=== PATIENT | male | born 1945 | race Caucasian/White ===

== ENCOUNTER → 2023-04-06 14:02 | Outpatient (BNVA) | payer MEDICARE, SELFPAY | PROVIDERS: PCP Registered Nurse; Visit Provider Registered Nurse | DX: F32.A Depression, unspecified (principal); R63.4 Abnormal weight loss; E53.8 Deficiency of other specified B group vitamins; E55.9 Vitamin D deficiency, unspecified; F17.210 Nicotine dependence, cigarettes, uncomplicated | CPT/HCPCS: 80053; 82306; 82607; 84443; 85025 ==

== ENCOUNTER 2023-11-16 10:21 | Emergency (ER) | payer MEDICARE, SELFPAY ==
[2023-11-16 10:43] VITALS: BP 155/77; PULSE 113; RESP 16; TEMP 36.9; O2SAT 96; BMI 25.7
--- NOTE | 2023-11-16 11:22 | XRR_ITS ---
PROCEDURE INFORMATION: Exam: XR Left Foot Exam date and time: 11/16/2023 11:39 AM Age: 78 years old Clinical indication: Patient HX: PT presents with left foot pain. Patient states left foot is red and swollen. Patient states it is MRSA. patient is a smoker. Patient ambulated to triage. Patent airway, unlabored respirations, and appropriate color. ; Additional info: Heel abscess, concerun for osteo TECHNIQUE: Imaging protocol: Radiologic exam of the left foot. Views: 3 or more views. COMPARISON: No relevant prior studies available. FINDINGS: Bones/joints: Negative for acute bony abnormality. There is narrowing of the interphalangeal articulations of multiple digits consistent with osteoarthritis. Apparent postoperative defect is seen in the distal 5th metatarsal. Soft tissues: Soft tissue density is seen in the plantar aspect of the heel measuring 8.8 mm. This finding may represent a soft tissue foreign body. XR/XR foot LT min 3V* [id number] IMPRESSION: 1. No acute findings. 2. Osteoarthritis 3. Possible soft tissue foreign body plantar aspect of the heel
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
[2023-11-16 11:41] LABS: Basophils # 0.1 10^3/uL (0.0-0.1); Basophils % 0.5 %; Eosinophils # 0.1 10^3/uL (0.0-0.8); Eosinophils % 1.2 %; Hematocrit 37.9 % (37-53); Lymphocytes # 1.9 10^3/uL (0.8-4.8); Lymphocytes % 15.9 %; Mean Corpuscular HGB Conc 34.3 g/dL (30-55); Mean Corpuscular Hemoglobin 32.3 pg (27-33); Mean Corpuscular Volume 94.3 fl (82-101); Mean Platelet Volume 10.2 fL (7.4-10.4); Monocytes # 0.8 10^3/uL (0.2-0.9); Monocytes % 7.1 %; Neutrophils # 8.72 10^3/uL (1.8-7.7); Nucleated Red Blood Cells % 0 %; Platelet Count 202 10^3/cmm (157-399); Red Blood Count 4.02 10^6/uL (3.85-5.65); Red Cell Distribution Width 13.2 % (12.1-15.1); White Blood Count 11.62 10^3/uL (3.29-11.43)
[2023-11-16 11:55] LABS: Alanine Aminotransferase 8 U/L (0-41); Albumin Level 3.7 g/dL (3.5-5.2); Alkaline Phosphatase 82 U/L (40-130); Blood Urea Nitrogen 8 mg/dL (8-23); C Reactive Protein 48.8 mg/L (0.0-4.9); Calcium 8.7 mg/dL (8.5-10.5); Carbon Dioxide 27 mmol/L (22-29); Chloride 95 mmol/L (98-107); Creatinine Clr Calc Pharmacy 83.3942; Globulin 2.7 g/dL (1.3-4.6); Glucose 139 mg/dL (65-115); Osmolality Calculated 275 mOsm/kg (285-295); Sodium 132 mmol/L (136-145); Total Bilirubin 0.5 mg/dL (0.15-1.2); Total Protein 6.4 g/dL (6.6-8.7)
[2023-11-16 11:58] LABS: Erythrocyte Sedimentation Rate 9 mm/hr (0-10)
[2023-11-16] MEDS: cefepime 2,000 MG in sodium chloride 0.9% (plus) 50 ML 100 MG IV (11:58)
[2023-11-16 11:59] LABS: Anion Gap 14.4 (5-19); Aspartate Amino Transferase 16 U/L (0-40); Potassium 4.4 mmol/L (3.5-5.1)
--- NOTE | 2023-11-16 12:17 | CT_ITS ---
WS: [id number] CT LEFT FOOT, WITH CONTRAST. HISTORY: Rule out osteomyelitis of the heel. Per podiatry Technique: All CT scans at [facility] use at least one of these dose optimization techniques: automated exposure control; mA and/or kV adjustment per patient size (includes targeted exams where dose is matched to clinical indication); or iterative reconstruction. DLP: 214.00 mGy.cm COMPARISON: Radiograph 11/16/2023 Contrast: 350 Omnipaque 100 mL IV. There is a soft tissue ulceration with central fluid and peripheral enhancement involving the plantar surface of the posterior foot. This ulceration and abscess measures 1.5 x 1.8 cm. There is a large a mount of soft tissue edema in the soft tissues along the plantar surface of the calcaneus extending t o the calcaneus. No erosions within the calcaneus or lucency. There is no definite osteomyelitis note d by CT. Mild edema throughout the soft tissues of the foot but predominantly at the hindfoot. Prior infection or amputation of the fifth metatarsal head. Bones are osteopenic. CT/CT foot LT w con [id number] IMPRESSION: 1. Soft tissue abscess along the plantar surface of the hindfoot measures 1.5 x 1.8 cm. There is a large amount of soft tissue edema surrounding the hindfoot . 2. The calcaneus remains intact. No osteomyelitis by CT.
[2023-11-16] MEDS: linezolid premix 600 MG/300 ML PREMIX 300 MG IV (12:31)
[2023-11-16 12:52] VITALS: RESP 18; O2SAT 98
[2023-11-16] MEDS: iohexol 350 mg/mL 500 mL Btl (per mL) IV (12:53)
== END 2023-11-16 13:51 | disposition home or self-care (01) ==
PROVIDERS: Emergency Provider Emergency Medicine
DX: L02.612 Cutaneous abscess of left foot (principal); F17.200 Nicotine dependence, unspecified, uncomplicated
CPT/HCPCS: 29445; 73630; 73701; 80053; 85025; 85651; 86140; 87070; 87075; 87077; 87186; 87205; 96365; 96367; 99285; J0692; J2020; Q9967

== ENCOUNTER → 2023-11-19 12:37 | Outpatient (BNVA) | payer MEDICARE, SELFPAY | PROVIDERS: Visit Provider Podiatrist Foot & Ankle Surgery | DX: L97.423 Non-pressure chronic ulcer of left heel and midfoot with necrosis of muscle (principal); Z51.89 Encounter for other specified aftercare; F17.210 Nicotine dependence, cigarettes, uncomplicated; L97.422 Non-pressure chronic ulcer of left heel and midfoot with fat layer exposed | CPT/HCPCS: 29445 ==

== ENCOUNTER → 2023-11-26 13:11 | Outpatient (BNVA) | payer MEDICARE, SELFPAY | PROVIDERS: Visit Provider Thoracic Surgery (Cardiothoracic Vascular Surgery) | DX: I96 Gangrene, not elsewhere classified (principal); L97.421 Non-pressure chronic ulcer of left heel and midfoot limited to breakdown of skin | CPT/HCPCS: 99213 ==

== ENCOUNTER → 2023-12-02 15:44 | Outpatient (BNVA) | payer MEDICARE, SELFPAY | PROVIDERS: Visit Provider Thoracic Surgery (Cardiothoracic Vascular Surgery) | DX: Z09 Encounter for follow-up examination after completed treatment for conditions other than malignant neoplasm (principal); Z87.2 Personal history of diseases of the skin and subcutaneous tissue | CPT/HCPCS: 99212 ==

== ENCOUNTER → 2023-12-09 11:29 | Outpatient (BNVA) | payer MEDICARE, SELFPAY | PROVIDERS: Visit Provider Nurse Practitioner Family | DX: I10 Essential (primary) hypertension (principal); Z76.89 Persons encountering health services in other specified circumstances | CPT/HCPCS: 80053; 80061; 85025 ==

== ENCOUNTER → 2024-03-29 14:20 | Outpatient (BNVA) | payer MEDICARE, SELFPAY | PROVIDERS: PCP Nurse Practitioner Family; Visit Provider Family Medicine | DX: R32 Unspecified urinary incontinence (principal) | CPT/HCPCS: 81000 ==

== ENCOUNTER → 2024-04-17 09:52 | Outpatient (BNVA) | payer MEDICARE, SELFPAY | PROVIDERS: PCP Nurse Practitioner Family; Referring Provider Family Medicine; Visit Provider Psychiatry & Neurology Neurology | DX: R41.3 Other amnesia (principal); R29.818 Other symptoms and signs involving the nervous system; I10 Essential (primary) hypertension; R41.89 Other symptoms and signs involving cognitive functions and awareness; R40.4 Transient alteration of awareness | CPT/HCPCS: 82306; 82607; 82746; 83090; 83921; 84439; 84443; 84481; 99203; 99204 ==

== ENCOUNTER 2024-04-19 13:14 | Outpatient (CLI) | payer MEDICARE, SELFPAY | END 2024-04-19 13:15 | disposition home or self-care (01) | LOC: LAB 13:15 | PROVIDERS: PCP Nurse Practitioner Family; Visit Provider Psychiatry & Neurology Neurology | DX: R41.89 Other symptoms and signs involving cognitive functions and awareness (principal) | CPT/HCPCS: 36415; 82542 ==

== ENCOUNTER 2024-05-05 11:45 | Outpatient (CLI) | payer MEDICARE, SELFPAY ==
--- NOTE | 2024-05-05 11:45 | MR_ITS ---
WS: [id number] MRI BRAIN WITH AND WITHOUT CONTRAST HISTORY: R41.3 - Other amnesia COMPARISON: None available. TECHNIQUE: Multiplanar imaging performed through the brain with MultiHance 15 ml's IV. No acute infarcts are seen. Graham-white matter differentiation is well preserved. Moderate atrophy. Sc attered T2 and FLAIR signal hyperintensities consistent with moderate small vessel disease. Slightly greater distribution of T2 and FLAIR signal hyperintensities on the RIGHT. No large territory infarct . No susceptibility artifacts or prior lacunar infarcts. Mild ventriculomegaly on the basis of atrophy. Clivus and pituitary gland are normal. Visualized posterior fossa and brainstem are also normal. Postcontrast images are negative for masses or vascular malformations. Dural venous sinuses are normal. Paranasal sinuses: Dense opacification LEFT frontal sinus. Extensive bilateral ethmoid air cell disea se. No air-fluid levels in the maxillary sinuses. Small mucous retention cyst on the RIGHT. Mastoid air cells: Normal. Calvarium and scalp: Normal. MR/MR head wo/w con [id number] IMPRESSION: 1. No acute infarct. No hemorrhage. 2. Moderate atrophy and moderate small vessel ischemic disease. No large sharla tory infarct. 3. LEFT frontal sinusitis. Bilateral ethmoid sinus disease. 4. No mass or abnormal enhancement.
[2024-05-05] MEDS: gadobenate dimeglumine 20 mL vial 15 ML IV (12:20)
== END 2024-05-05 11:46 | disposition home or self-care (01) ==
PROVIDERS: PCP Nurse Practitioner Family; Visit Provider Psychiatry & Neurology Neurology
DX: I67.82 Cerebral ischemia (principal); G31.9 Degenerative disease of nervous system, unspecified; J01.10 Acute frontal sinusitis, unspecified; J32.2 Chronic ethmoidal sinusitis; R41.3 Other amnesia
CPT/HCPCS: 70553

== ENCOUNTER 2024-06-06 14:27 | Oncology outpatient (recurring) (ONCR) | payer MEDICARE, SELFPAY | END 2024-06-27 23:59 | disposition home or self-care (01) | PROVIDERS: PCP Nurse Practitioner Family; Visit Provider Internal Medicine Medical Oncology | DX: Z53.9 Procedure and treatment not carried out, unspecified reason (principal); F17.210 Nicotine dependence, cigarettes, uncomplicated; I10 Essential (primary) hypertension; R79.83 Abnormal findings of blood amino-acid level | CPT/HCPCS: 99204 ==

== ENCOUNTER → 2024-07-25 12:54 | Outpatient (BNVA) | payer MEDICARE, SELFPAY | PROVIDERS: PCP Nurse Practitioner Family; Referring Provider Psychiatry & Neurology Neurology; Visit Provider Psychiatry & Neurology Neurology | DX: R56.9 Unspecified convulsions (principal) | CPT/HCPCS: 95816 ==

== ENCOUNTER 2024-08-25 13:09 | Outpatient (CLI) | payer MEDICARE, SELFPAY | END 2024-08-25 13:10 | disposition home or self-care (01) | LOC: LAB 13:11 | PROVIDERS: PCP Nurse Practitioner Family; Visit Provider Psychiatry & Neurology Neurology | DX: R41.3 Other amnesia (principal); G30.0 Alzheimer's disease with early onset; F02.80 Dementia in other diseases classified elsewhere, unspecified severity, without behavioral disturbance, psychotic disturbance, mood disturbance, and anxiety; R40.4 Transient alteration of awareness | CPT/HCPCS: 0346U; 36415; 82542; 83520 ==

== ENCOUNTER → 2024-08-31 09:52 | Outpatient (BNVA) | payer MEDICARE, SELFPAY | PROVIDERS: PCP Nurse Practitioner Family; Visit Provider Psychiatry & Neurology Neurology | DX: G30.0 Alzheimer's disease with early onset (principal); F02.80 Dementia in other diseases classified elsewhere, unspecified severity, without behavioral disturbance, psychotic disturbance, mood disturbance, and anxiety; R40.4 Transient alteration of awareness; R41.89 Other symptoms and signs involving cognitive functions and awareness; R29.818 Other symptoms and signs involving the nervous system | CPT/HCPCS: 99212 ==

== ENCOUNTER → 2024-09-27 15:05 | Outpatient (BNVA) | payer MEDICARE, SELFPAY | PROVIDERS: PCP Nurse Practitioner Family; Visit Provider Family Medicine | DX: I10 Essential (primary) hypertension (principal) | CPT/HCPCS: 80053; 85025 ==

== ENCOUNTER → 2024-12-06 15:48 | Outpatient (BNVA) | payer MEDICARE, SELFPAY | PROVIDERS: PCP Nurse Practitioner Family; Visit Provider Psychiatry & Neurology Neurology | DX: G30.0 Alzheimer's disease with early onset (principal); F02.80 Dementia in other diseases classified elsewhere, unspecified severity, without behavioral disturbance, psychotic disturbance, mood disturbance, and anxiety; R40.4 Transient alteration of awareness; R41.89 Other symptoms and signs involving cognitive functions and awareness; R29.818 Other symptoms and signs involving the nervous system | CPT/HCPCS: 99212 ==